=== PATIENT | female | born 1965 | race Caucasian/White ===

== ENCOUNTER 2017-04-21 17:10 | Emergency (ER) | payer OTHER ==
[~2017-04-21] VITALS: Ht 157.5 cm; Wt 64.0 kg
[2017-04-21] MEDS ORDERED: HTN PO (17:21)
[2017-04-21 17:28] LABS: GLUCOSE,POINT OF CARE 189 MG/DL (70-110)
[2017-04-21] MEDS ORDERED: IBUPROFEN 800 MG TABLET PO ONE (18:30)
[2017-04-21 19:22] VITALS: BP 142/94
== END 2017-04-21 19:47 | disposition home or self-care (01) ==
LOC: EMS 17:13
DX: S20.219A Contusion of unspecified front wall of thorax, initial encounter (principal); E11.9 Type 2 diabetes mellitus without complications; I10 Essential (primary) hypertension; V43.62XA Car passenger injured in collision with other type car in traffic accident, initial encounter; Y93.89 Activity, other specified; Y92.410 Unspecified street and highway as the place of occurrence of the external cause; Y99.8 Other external cause status
CPT/HCPCS: 71020; 82962; 99284